=== PATIENT | male | born 1945 | race Caucasian/White ===

== ENCOUNTER 2019-03-01 07:19 | Inpatient (IN) | payer MEDICARE ==
[2019-03-01] VITALS (10 sets, daily range): BP systolic 121–143; BP diastolic 60–73
[~2019-03-01] VITALS: Ht 188 cm; Wt 99.2 kg
[~2019-03-01 07:19] MED LIST: LEVO150T8 PO
[2019-03-01 08:42] LABS: BASOPHILS % (AUTO) 0.7 % (0-1); EOSINOPHILS # (AUTO) 0.1 X10'3 (0-0.9); EOSINOPHILS % (AUTO) 1.8 % (0-6); HEMATOCRIT 39.9 % (42.0-52.0); HEMOGLOBIN 13.9 g/dl (14.0-17.9); LYMPHOCYTES # (AUTO) 2.1 X10'3 (1.1-4.8); LYMPHOCYTES % (AUTO) 34.8 % (21-51); MEAN CORPUSCULAR HEMOGLOBIN 31.9 PG (27.0-31.0); MEAN CORPUSCULAR HGB CONC 34.7 g/dL (33.0-36.5); MEAN PLATELET VOLUME 7.7 FL (7.4-10.4); MONOCYTES # (AUTO) 0.4 X10'3 (0-0.9); MONOCYTES % (AUTO) 6.4 % (2-12); NEUTROPHILS # (AUTO) 3.4 X10'3 (1.8-7.7); NEUTROPHILS % (AUTO) 56.3 % (42-75); PLATELET COUNT 253 X10'3 (140-440); RED BLOOD COUNT 4.34 X10'6 (4.70-6.10); RED CELL DISTRIBUTION WIDTH 13.5 % (11.5-14.5)
[2019-03-01 08:49] LABS: ALANINE AMINOTRANSFERASE 30 U/L (12-78); ALBUMIN 3.8 G/DL (3.4-5.0); ALBUMIN/GLOBULIN RATIO 1.1 (1.1-1.5); ALKALINE PHOSPHATASE 57 IU/L (46-116); ANION GAP 10 (8-16); ASPARTATE AMINO TRANSFERASE 21 U/L (10-37); BILIRUBIN,TOTAL 0.7 MG/DL (0.1-1.0); BLOOD UREA NITROGEN 24 MG/DL (7-18); BUN/CREATININE RATIO 20.5 (5.4-32.0); CALCIUM 9.3 MG/DL (8.5-10.1); CHLORIDE 107 MMOL/L (99-107); CREATININE 1.17 MG/DL (0.60-1.10); GLUCOSE 106 MG/DL (70-104); POTASSIUM 3.8 MMOL/L (3.5-5.1); SODIUM 142 MMOL/L (135-145); TOTAL PROTEIN 7.3 G/DL (6.4-8.2); eGFR 61 ML/MIN
[2019-03-01 09:11] LABS: PARTIAL THROMBOPLASTIN TIME 27 SECONDS (22-32)
[2019-03-01] MEDS ORDERED: nitroGLYCERIN 1gm ointment UD TP ONE (09:25)
[2019-03-01] MEDS ORDERED: morphine 2 MG/ML inj. syringe IV PRN ×2 (09:40)
[2019-03-01] MEDS ORDERED: mag hydrox/Alum hydrox/simeth 30ml oral suspension PO PRN (09:40)
[2019-03-01] MEDS ORDERED: magnesium hydroxide 30ml (MOM) UD suspension PO PRN (09:40)
[2019-03-01] MEDS ORDERED: ondansetron/PF 4mg/2ml inj IV PRN (09:40)
[2019-03-01] MEDS ORDERED: acetaminophen 325mg tablet PO PRN (09:40)
[2019-03-01] MEDS ORDERED: nitroGLYCERIN 0.4mg SUBLingual tab SL PRN (09:40)
[2019-03-01] MEDS: normal saline 1000ml 1,000 ML IV SCH ×2 (09:43→21:52)
--- NOTE | 2019-03-01 10:30 | NUR ---
Received report from MERRY Lobato RN
--- NOTE | 2019-03-01 12:41 | NUR ---
Sent to Dr Burk PAGER ID: [phone] MESSAGE: RE: Nasir Saldaña [id number]. Hour 3 Troponin 0.69 -Meaghan [id number]
[2019-03-01] MEDS ORDERED: heparin 25,000 UNIT/250ml bag 250 ML IV SCH (13:03)
[2019-03-01] MEDS ORDERED: heparin 10,000 units/1 ML INJ IV PRN (13:05)
[2019-03-01] MEDS ORDERED: heparin 10,000 units/1 ML INJ IV ONE (13:05)
[2019-03-01] MEDS ORDERED: nitroGLYCERIN 0.4mg/hour patch TD ONE (13:05)
[2019-03-01] MEDS ORDERED: diphenhydrAMINE 25 MG/10 ML UD oral solution PO ONE (14:00)
[2019-03-01 14:17] LABS: BASOPHILS # (AUTO) 0.1 X10'3 (0-0.2); BASOPHILS % (AUTO) 0.7 % (0-1); EOSINOPHILS # (AUTO) 0.1 X10'3 (0-0.9); EOSINOPHILS % (AUTO) 0.9 % (0-6); HEMATOCRIT 42.1 % (42.0-52.0); HEMOGLOBIN 14.2 g/dl (14.0-17.9); LYMPHOCYTES % (AUTO) 25.9 % (21-51); MEAN CORPUSCULAR HEMOGLOBIN 31.5 PG (27.0-31.0); MEAN CORPUSCULAR HGB CONC 33.8 g/dL (33.0-36.5); MEAN CORPUSCULAR VOLUME 93.2 FL (78-98); MEAN PLATELET VOLUME 7.7 FL (7.4-10.4); MONOCYTES # (AUTO) 0.4 X10'3 (0-0.9); MONOCYTES % (AUTO) 4.8 % (2-12); NEUTROPHILS # (AUTO) 5.3 X10'3 (1.8-7.7); NEUTROPHILS % (AUTO) 67.7 % (42-75); PLATELET COUNT 267 X10'3 (140-440); RED BLOOD COUNT 4.52 X10'6 (4.70-6.10); RED CELL DISTRIBUTION WIDTH 13.5 % (11.5-14.5); WHITE BLOOD COUNT 7.9 X10'3 (4.5-11.0)
[2019-03-01 14:38] LABS: PARTIAL THROMBOPLASTIN TIME 94 SECONDS (22-32)
--- NOTE | 2019-03-01 14:47 | NUR ---
Nasir Saldaña 7307b Critical Value PTT 94 FERNANDO Omer ext [phone]
[2019-03-01] MEDS ORDERED: diphenhydrAMINE 25mg capsule PO ONE (16:00)
[2019-03-01] MEDS ORDERED: LORazepam 1 MG tablet PO ONE (16:00)
--- NOTE | 2019-03-01 16:30 | NUR ---
Patient in room PCU 3017. I have received report from FERNANDO Nathan and had the opportunity to ask questions and assume patient care.
--- NOTE | 2019-03-01 18:00 | NUR ---
Problems reprioritized. Patient report given, questions answered & plan of care reviewed with FERNANDO Husain .
[2019-03-01] MEDS ORDERED: midazolam 2 mg/2 ml injection ONE (19:23)
[2019-03-01] MEDS ORDERED: iohexol 350 MG/ML 50ML vial IV ONE ×2 (19:24→19:52)
[2019-03-01] MEDS ORDERED: fentaNYL/PF 50MCG/1 ML 2ML syringe ONE (19:24)
[2019-03-01] MEDS ORDERED: iohexol 350MG/ML 100ml bottle IV ONE (19:24)
[2019-03-01] MEDS ORDERED: LIDOcaine 1% (10mg/ml)w/preservative injection 20ml MDV ONE (19:24)
[2019-03-01] MEDS ORDERED: heparin, porcine 5000 units/ml vial SQ SCH (20:00)
[2019-03-01] MEDS ORDERED: HYDROcodone/acetaminophen 5mg/325mg tablet PO PRN (22:25)
[2019-03-01] MEDS ORDERED: OXAZEpam 10mg capsule PO PRN ×2 (22:25→22:37)
[2019-03-02] VITALS (7 sets, daily range): BP systolic 101–128; BP diastolic 50–72
--- NOTE | 2019-03-02 01:48 | NUR ---
Unfortunately when the patient arrived back on the unit at 2100 and the vitals machine was programmed, the machine did not start taking the vitals. I went in at about 2145 and reprogrammed the vitals machine correctly and was able to start post op vitals. I will document these.
--- NOTE | 2019-03-02 03:54 | NUR ---
Upon arriving to the unit after receiving report and looking in to the chart, it was noted that the patient did not have a current PTT drawn before starting his Heparin drip. The PTT was drawn at 0800 on 03/01 and was noted to be at 27. The next PTT that was drawn was timed wrong per protocol at 1402. If the PTT labs were drawn correctly, we would have noted them to be at 1330 before the heparin drip was started at 1335 and again at 1930. The ptt that was re drawn at the incorrect time of 1402 and was 94. Per protocol this is a critical result and the drip should have been shut off for 120 min. As I discovered the drip still running outside of protocol, I stopped the drip at 1817. We attempted to get a re draw ptt at 1835, however, we were unable to get blood from the patient. The patient then went to labels molder at approximately 1900. The patient arrived back on the unit at approximately 2100. The patient had orders to lay flat for 6 hrs. The patient was able to ambulate at 0300 to the bathroom. He has no complications, no signs of bleeding or infection and is now resting comfortably.
[2019-03-02 05:49] LABS: BASOPHILS % (AUTO) 0.5 % (0-1); EOSINOPHILS % (AUTO) 0 % (0-6); HEMATOCRIT 36.6 % (42.0-52.0); HEMOGLOBIN 12.6 g/dl (14.0-17.9); LYMPHOCYTES # (AUTO) 1.7 X10'3 (1.1-4.8); LYMPHOCYTES % (AUTO) 16.3 % (21-51); MEAN CORPUSCULAR HEMOGLOBIN 31.9 PG (27.0-31.0); MEAN CORPUSCULAR HGB CONC 34.5 g/dL (33.0-36.5); MEAN CORPUSCULAR VOLUME 92.5 FL (78-98); MEAN PLATELET VOLUME 7.7 FL (7.4-10.4); MONOCYTES # (AUTO) 0.8 X10'3 (0-0.9); MONOCYTES % (AUTO) 7.9 % (2-12); NEUTROPHILS # (AUTO) 8.1 X10'3 (1.8-7.7); NEUTROPHILS % (AUTO) 75.3 % (42-75); PLATELET COUNT 225 X10'3 (140-440); RED BLOOD COUNT 3.95 X10'6 (4.70-6.10); RED CELL DISTRIBUTION WIDTH 13.2 % (11.5-14.5); WHITE BLOOD COUNT 10.7 X10'3 (4.5-11.0)
[2019-03-02 06:09] LABS: ALBUMIN 3.2 G/DL (3.4-5.0); ANION GAP 10 (8-16); BLOOD UREA NITROGEN 14 MG/DL (7-18); BUN/CREATININE RATIO 13.3 (5.4-32.0); CALCIUM 8.6 MG/DL (8.5-10.1); CHLORIDE 106 MMOL/L (99-107); CREATININE 1.05 MG/DL (0.60-1.10); GLUCOSE 124 MG/DL (70-104); POTASSIUM 3.9 MMOL/L (3.5-5.1); SODIUM 139 MMOL/L (135-145); TOTAL CARBON DIOXIDE 23.1 MMOL/L (24-32); eGFR 69 ML/MIN
--- NOTE | 2019-03-02 06:11 | NUR ---
Problems reprioritized. Patient report given, questions answered & plan of care reviewed with FERNANDO Nathan.
--- NOTE | 2019-03-02 06:24 | NUR ---
Patient in room PCU 3017. I have received report from FERNANDO Husain and had the opportunity to ask questions and assume patient care. Pt resting comfortably
[2019-03-02] MEDS: atorvastatin 20mg tablet PO SCH (07:29)
[2019-03-02] MEDS: aspirin 81mg tablet.DR PO SCH (07:29)
[2019-03-02] MEDS: levoTHYROXINE 75mcg tablet PO SCH (07:29)
[2019-03-02] MEDS ORDERED: LEVOTHYROXINE SODIUM 150 MCG PO SCH (08:00)
--- NOTE | 2019-03-02 10:30 | NUR ---
Dr Fernando had consult with patient at bedside. gave report to FERNANDO Amin in [facility]. Pt ready to transfer to [facility]
--- NOTE | 2019-03-02 11:10 | NUR ---
pt transfer to [facility] with all belongings he ambulated to new room.
[2019-03-02] MEDS ORDERED: insulin glargine (Lantus) pen - multi-dose SQ PRN (13:40)
[2019-03-02] MEDS ORDERED: dextrose 50%-water 50ml dispensing syringe IV PRN (13:40)
[2019-03-02] MEDS ORDERED: MESSAGE TO NURSING PO ONE ×3 (13:40→18:00)
[2019-03-02 14:51] LABS: ALBUMIN 3.4 G/DL (3.4-5.0); ANION GAP 8 (8-16); BLOOD UREA NITROGEN 11 MG/DL (7-18); BUN/CREATININE RATIO 9.6 (5.4-32.0); CALCIUM 8.9 MG/DL (8.5-10.1); CHLORIDE 107 MMOL/L (99-107); CREATININE 1.15 MG/DL (0.60-1.10); GLUCOSE 145 MG/DL (70-104); POTASSIUM 3.6 MMOL/L (3.5-5.1); SODIUM 139 MMOL/L (135-145); TOTAL CARBON DIOXIDE 24.4 MMOL/L (24-32); eGFR 62 ML/MIN
[2019-03-02 14:53] LABS: HEMOGLOBIN A1C 5.5 % (4.5-6.2)
[2019-03-02 14:55] LABS: PARTIAL THROMBOPLASTIN TIME 23 SECONDS (22-32)
--- NOTE | 2019-03-02 15:07 | NUR ---
PAGED PT PT IN 308 IS GOING TO SURGERY TOMORROW, NEEDS PT EVAL. THANK YOU, HAIDER PAL [phone]
--- NOTE | 2019-03-02 15:07 | NUR ---
PAGED RT PT IN 308 IS GOING TO SURGERY TOMORROW, NEEDS ABG AND PFT. THANK YOU, HAIDER PAL [phone]
[2019-03-02 15:42] LABS: HEMATOCRIT 36.8 % (42.0-52.0); HEMOGLOBIN 12.9 g/dl (14.0-17.9); MEAN CORPUSCULAR HEMOGLOBIN 31.9 PG (27.0-31.0); MEAN CORPUSCULAR HGB CONC 34.9 g/dL (33.0-36.5); MEAN CORPUSCULAR VOLUME 91.4 FL (78-98); MEAN PLATELET VOLUME 7.8 FL (7.4-10.4); PLATELET COUNT 233 X10'3 (140-440); RED BLOOD COUNT 4.03 X10'6 (4.70-6.10); RED CELL DISTRIBUTION WIDTH 13.6 % (11.5-14.5); WHITE BLOOD COUNT 9.5 X10'3 (4.5-11.0)
--- NOTE | 2019-03-02 16:36 | NUR ---
PAGED VASCULAR "REGARDING 308- ARE YOU COMING BACK UP TO DO HIS VEIN MAPPING AND CAROTIDS? THANK YOU, HAIDER PAL [phone]"
[2019-03-02 17:51] LABS: ABG BASE EXCESS 0.4 mmol/L (-2.0-3.0); ABG HCO3 23.3 mmol/L (22.0-26.0); ABG OXYGEN SATURATION 96.4 % (95-98); ABG PCO2 (T) 32.3 mmHg (35.0-45.0); ABG PH (T) 7.476 (7.350-7.450); ABG PO2 (T) 81.6 mmHg (83-108); ALLEN'S TEST Positive; FCOHb 0.2 % (0.5-1.5); FMetHb 0.3 % (0.3-1.12); FO2Hb 95.9 % (94-100); RESPIRATORY RATE (OBSERVED) 20 b/min; TOTAL HEMOGLOBIN 13.1 G/dl (14.0-17.9)
--- NOTE | 2019-03-02 18:00 | NUR ---
Problems reprioritized. Patient report given, questions answered & plan of care reviewed with CHATA.
--- NOTE | 2019-03-02 18:15 | NUR ---
Patient in room MED 308. I have received report from FERNANDO Amin and had the opportunity to ask questions and assume patient care.
[2019-03-02] MEDS: metoprolol tartrate 12.5mg (1/2 tablet) PO SCH (20:00)
[2019-03-02] MEDS: mupirocin 2% nasal ointment 1gm UD NS SCH (20:54)
[2019-03-03] VITALS (13 sets, daily range): BP systolic 101–133; BP diastolic 58–72
[2019-03-03] MEDS ORDERED: MESSAGE TO NURSING PO ONE ×2 (02:00→08:00)
[2019-03-03] MEDS ORDERED: cefazolin/dext.iso 2gm/50ml 50 ML IV ONE (06:00)
[2019-03-03] MEDS ORDERED: gabapentin 400mg capsule PO ONE (06:00)
[2019-03-03] MEDS ORDERED: insulin regular, human 100 UNIT in normal saline 100ml IV soln 100 ML IV SCH ×2 (06:00)
[2019-03-03] MEDS ORDERED: vancomycin/NS 1 GM ADD-VANTAGE 250 ML IV ONE (06:00)
[2019-03-03] MEDS ORDERED: NUT.TX.IMPAIRED DIGEST FXN (Ensure Clear) 237 ML PO ONE (06:00)
--- NOTE | 2019-03-03 06:15 | NUR ---
Problems reprioritized. Patient report given, questions answered & plan of care reviewed with FERNANDO Culp, Sonam RN and FERNANDO Gerber.
[2019-03-03] MEDS ORDERED: famotidine 20mg tablet PO ONE (07:00)
[2019-03-03] MEDS ORDERED: LORazepam 2 mg/ml vial IV ONE (07:00)
--- NOTE | 2019-03-03 07:00 | NUR ---
Patient in room MED 308. I have received report from Arpita KING and had the opportunity to ask questions and assume patient care.
[2019-03-03 07:01] LABS: BASOPHILS % (AUTO) 0.6 % (0-1); EOSINOPHILS # (AUTO) 0.2 X10'3 (0-0.9); EOSINOPHILS % (AUTO) 2.6 % (0-6); HEMATOCRIT 35.2 % (42.0-52.0); HEMOGLOBIN 12.2 g/dl (14.0-17.9); LYMPHOCYTES # (AUTO) 1.9 X10'3 (1.1-4.8); LYMPHOCYTES % (AUTO) 26.4 % (21-51); MEAN CORPUSCULAR HEMOGLOBIN 31.5 PG (27.0-31.0); MEAN CORPUSCULAR HGB CONC 34.7 g/dL (33.0-36.5); MEAN CORPUSCULAR VOLUME 90.8 FL (78-98); MEAN PLATELET VOLUME 7.5 FL (7.4-10.4); MONOCYTES # (AUTO) 0.6 X10'3 (0-0.9); NEUTROPHILS # (AUTO) 4.4 X10'3 (1.8-7.7); NEUTROPHILS % (AUTO) 61.4 % (42-75); PLATELET COUNT 222 X10'3 (140-440); RED BLOOD COUNT 3.88 X10'6 (4.70-6.10); RED CELL DISTRIBUTION WIDTH 13.5 % (11.5-14.5); WHITE BLOOD COUNT 7.1 X10'3 (4.5-11.0)
[2019-03-03 07:23] LABS: ALBUMIN 3.3 G/DL (3.4-5.0); ANION GAP 9 (8-16); BLOOD UREA NITROGEN 12 MG/DL (7-18); BUN/CREATININE RATIO 11.3 (5.4-32.0); CALCIUM 8.9 MG/DL (8.5-10.1); CHLORIDE 108 MMOL/L (99-107); CREATININE 1.06 MG/DL (0.60-1.10); GLUCOSE 109 MG/DL (70-104); POTASSIUM 3.8 MMOL/L (3.5-5.1); SODIUM 142 MMOL/L (135-145); TOTAL CARBON DIOXIDE 25.2 MMOL/L (24-32); eGFR 68 ML/MIN
[2019-03-03] MEDS: metoprolol tartrate 12.5mg (1/2 tablet) PO SCH (08:20)
[2019-03-03] MEDS: atorvastatin 20mg tablet PO SCH (08:21)
[2019-03-03] MEDS: aspirin 81mg tablet.DR PO SCH (08:21)
[2019-03-03] MEDS: levoTHYROXINE 75mcg tablet PO SCH (08:29)
[2019-03-03] MEDS: mupirocin 2% nasal ointment 1gm UD NS SCH ×2 (08:31→20:01)
[2019-03-03] MEDS ORDERED: calcium chloride 100 MG/1 ML inj IV ONE (13:00)
[2019-03-03] MEDS ORDERED: potassium Cl 2 mEq/ml inj IV ONE (13:00)
[2019-03-03] MEDS ORDERED: heparin 1,000 units/ml 10ml inj ONE (13:00)
[2019-03-03] MEDS ORDERED: heparin 10,000 units/1 ML INJ ONE (13:00)
[2019-03-03] MEDS ORDERED: aminocaproic acid 250 MG/1 ML inj. ONE (13:00)
[2019-03-03] MEDS ORDERED: albumin (human) 25% 100 ML IV solution IV ONE (13:00)
[2019-03-03] MEDS ORDERED: sodium bicarbonate (8.4%) 1 mEq/ml syringe ONE (13:00)
[2019-03-03] MEDS ORDERED: methylPREDNISolone sod. succ. 500mg inj ONE (13:00)
[2019-03-03] MEDS ORDERED: MAGNESIUM SULFATE 4 MEQ/ML (5gm/10ml) injection ONE (13:00)
[2019-03-03] MEDS ORDERED: phenylephrine 10mg/ml inj. ONE (13:00)
[2019-03-03] MEDS ORDERED: LIDOcaine 2% (20 mg/ml) 5ml cardiac syringe ONE (13:00)
[2019-03-03] MEDS ORDERED: SUFENTANIL CITRATE 50 MCG/ML 2ml ampule IV ONE (13:06)
[2019-03-03] MEDS ORDERED: MIDAZolam 1mg/ml 10ml vial ONE (13:06)
[2019-03-03] MEDS ORDERED: propofol inj 20 ML IV ONE (13:09)
[2019-03-03] MEDS ORDERED: rocuronium 10mg/ml inj IV ONE ×3 (13:10→16:33)
--- NOTE | 2019-03-03 13:10 | NUR ---
Patient went to [facility] OR
[2019-03-03] MEDS ORDERED: protamine sulf. 10mg/ml inj. IV ONE (13:12)
[2019-03-03] MEDS ORDERED: niCARDipine in NS 40mg/200ml (0.2mg/ml) IVPB IV ONE (13:12)
[2019-03-03] MEDS ORDERED: nitroGLYCERIN in D5W 50mg/250ml (Tridil) infusion IV ONE (13:12)
[2019-03-03] MEDS ORDERED: sevoflurane 250ml liquid IH ONE (13:12)
[2019-03-03] MEDS ORDERED: acetaminophen 1000 MG/100ml vial IV ONE (13:12)
[2019-03-03 14:00] LABS: ABG HCO3 22.4 mmol/L (22.0-26.0); ABG OXYGEN SATURATION 99.4 % (95-98); ABG PCO2 32.9 mmHg (35.0-45.0); ABG PO2 460.7 mmHg (60.0-100.0); CL (ABG) 105 mmol/L (99-107); FCOHb 0.6 % (0.5-1.5); FMetHb 0.2 % (0.3-1.12); FO2Hb 98.6 % (94-100); GLUCOSE (ABG) 98 mg/dl (70-104); IONIZED CA (ABG) 1.16 mmol/L (1.03-1.32); K (ABG) 3.9 mmol/L (3.3-5.1); NA (ABG) 139 mmol/L (135-145); TOTAL HEMOGLOBIN 12.3 G/dl (14.0-17.9)
[2019-03-03 14:25] LABS: ABG BASE EXCESS -1.6 mmol/L (-2.0-3.0); ABG HCO3 23.1 mmol/L (22.0-26.0); ABG OXYGEN SATURATION 84.9 % (95-98); ABG PCO2 38.9 mmHg (35.0-45.0); ABG PH 7.392 (7.350-7.450); ABG PO2 50.2 mmHg (60.0-100.0); CL (ABG) 103 mmol/L (99-107); FMetHb 0.1 % (0.3-1.12); GLUCOSE (ABG) 122 mg/dl (70-104); IONIZED CA (ABG) 1.14 mmol/L (1.03-1.32); K (ABG) 3.7 mmol/L (3.3-5.1); NA (ABG) 137 mmol/L (135-145); TOTAL HEMOGLOBIN 11.7 G/dl (14.0-17.9)
[2019-03-03 14:46] LABS: ABG BASE EXCESS VENOUS -0.7 mmol/L; ABG HCO3 VENOUS 24.1 mmol/L; ABG PCO2 VENOUS 40.7 mmHg; ABG PO2 VENOUS 51.1 mmHg; CL (ABG) 102 mmol/L (99-107); FCOHb VENOUS 1.1 %; FHHb VENOUS 15.4 %; FMetHb VENOUS 0.4 %; FO2Hb VENOUS 83.1 %; GLUCOSE (ABG) 111 mg/dl (70-104); IONIZED CA (ABG) 1.05 mmol/L (1.03-1.32); K (ABG) 4.4 mmol/L (3.3-5.1); NA (ABG) 136 mmol/L (135-145); TOTAL HEMOGLOBIN 9.7 G/dl (14.0-17.9)
[2019-03-03 14:46] LABS: ABG BASE EXCESS 0.3 mmol/L (-2.0-3.0); ABG HCO3 25.1 mmol/L (22.0-26.0); ABG OXYGEN SATURATION 99.1 % (95-98); ABG PH 7.404 (7.350-7.450); CL (ABG) 103 mmol/L (99-107); FCOHb 0.3 % (0.5-1.5); FMetHb 0.1 % (0.3-1.12); FO2Hb 98.7 % (94-100); GLUCOSE (ABG) 112 mg/dl (70-104); IONIZED CA (ABG) 1.06 mmol/L (1.03-1.32); K (ABG) 4.6 mmol/L (3.3-5.1); NA (ABG) 136 mmol/L (135-145); TOTAL HEMOGLOBIN 9.6 G/dl (14.0-17.9)
[2019-03-03 15:10] LABS: ABG BASE EXCESS -1.7 mmol/L (-2.0-3.0); ABG HCO3 24.3 mmol/L (22.0-26.0); ABG OXYGEN SATURATION 99.3 % (95-98); ABG PH 7.332 (7.350-7.450); ABG PO2 408.3 mmHg (60.0-100.0); CL (ABG) 103 mmol/L (99-107); FCOHb 0.4 % (0.5-1.5); FMetHb 0.2 % (0.3-1.12); FO2Hb 98.7 % (94-100); GLUCOSE (ABG) 161 mg/dl (70-104); IONIZED CA (ABG) 1.11 mmol/L (1.03-1.32); K (ABG) 4.1 mmol/L (3.3-5.1); NA (ABG) 137 mmol/L (135-145); TOTAL HEMOGLOBIN 9.7 G/dl (14.0-17.9)
[2019-03-03 15:56] LABS: ABG BASE EXCESS VENOUS -0.8 mmol/L; ABG HCO3 VENOUS 23.6 mmol/L; ABG PCO2 VENOUS 37.9 mmHg; ABG PO2 VENOUS 65.3 mmHg; CL (ABG) 103 mmol/L (99-107); FCOHb VENOUS 0.4 %; FHHb VENOUS 8.4 %; FMetHb VENOUS 0.5 %; FO2Hb VENOUS 90.7 %; GLUCOSE (ABG) 161 mg/dl (70-104); IONIZED CA (ABG) 1.23 mmol/L (1.03-1.32); K (ABG) 4.3 mmol/L (3.3-5.1); NA (ABG) 137 mmol/L (135-145); TOTAL HEMOGLOBIN 10.3 G/dl (14.0-17.9)
[2019-03-03] MEDS ORDERED: DOPamine 400mg/D5W 250ml 250 ML IV PRN (16:21)
[2019-03-03] MEDS ORDERED: niCARDipine-NS 40mg/200ml IVPB 200 ML IV PRN (16:21)
[2019-03-03] MEDS ORDERED: nitroGLYCERIN-Tridil 50MG/D5W 250 ML IV PRN (16:21)
[2019-03-03] MEDS ORDERED: sodium chloride 0.45% 1,000 ML IV SCH (16:21)
[2019-03-03] MEDS ORDERED: insulin regular, human inj. 100 UNITS in normal saline 100ml IV soln 100 ML IV SCH ×2 (16:25)
[2019-03-03] MEDS ORDERED: albumin (Human) 5% 250ml 250 ML IV PRN (16:25)
[2019-03-03] MEDS ORDERED: sodium phosphate inj. 15 MMOL in dextrose 5%-water 150 ML IV PRN (16:25)
[2019-03-03] MEDS ORDERED: Neutra Phos packet PO PRN (16:25)
[2019-03-03] MEDS ORDERED: acetaminophen 325mg tablet PO PRN (16:25)
[2019-03-03] MEDS ORDERED: normal saline 250ml IV soln 250 ML IV PRN (16:25)
[2019-03-03] MEDS ORDERED: morphine 4 MG/ML inj SYRINge IV PRN ×2 (16:25)
[2019-03-03] MEDS ORDERED: sodium phosphate inj. 30 MMOL in dextrose 5%-water 250 ML IV PRN (16:25)
[2019-03-03] MEDS ORDERED: magnesium hydroxide 30ml (MOM) UD suspension PO PRN (16:25)
[2019-03-03] MEDS ORDERED: dextrose 50%-water 50ml dispensing syringe IV PRN (16:25)
[2019-03-03] MEDS ORDERED: magnesium 2GM in 50ml NS 50 ML IV PRN (16:25)
[2019-03-03] MEDS ORDERED: ondansetron/PF 4mg/2ml inj IV PRN (16:25)
[2019-03-03] MEDS ORDERED: metoclopramide 5 mg/ml inj IV PRN (16:25)
[2019-03-03] MEDS ORDERED: HYDROcodone/acetaminophen 10/325mg tab PO PRN ×2 (16:25)
[2019-03-03] MEDS ORDERED: pantoprazole 40 MG vial IV ONE (16:25)
[2019-03-03] MEDS ORDERED: potassium Cl 20 mEq SR tablet PO PRN (16:25)
[2019-03-03] MEDS ORDERED: magnesium 4gm in 100ml NS 100 ML IV PRN (16:25)
--- NOTE | 2019-03-03 16:40 | NUR ---
Received to room 2010, accompanied by Keisha Fernando and Armando and surgical crew. Placed on ventilator, to cardiac cath lab manager, arterial line and PA line pressure monitored. Chest tubes to suction at 20 cm. Kohli cath to gravity drainage. Dressings are dry and intact. See assessment record. All vasoactive drugs are infusing via central line.
[2019-03-03 16:46] LABS: ABG BASE EXCESS -0.2 mmol/L (-2.0-3.0); ABG HCO3 24.5 mmol/L (22.0-26.0); ABG OXYGEN SATURATION 96.8 % (95-98); ABG PCO2 (T) 40.2 mmHg (35.0-45.0); ABG PH (T) 7.403 (7.350-7.450); ABG PO2 (T) 91.8 mmHg (83-108); FCOHb 0.2 % (0.5-1.5); FMetHb 0.2 % (0.3-1.12); FO2Hb 96.4 % (94-100); MINUTE VOLUME 8 L/min; PEEP 5 cm H2O; RESPIRATORY RATE 12 b/min; RESPIRATORY RATE (OBSERVED) 12 b/min; TIDAL VOLUME 600 mL; TOTAL HEMOGLOBIN 13.3 G/dl (14.0-17.9)
[2019-03-03 17:05] LABS: BASOPHILS # (AUTO) 0.1 X10'3 (0-0.2); BASOPHILS % (AUTO) 0.4 % (0-1); EOSINOPHILS # (AUTO) 0.2 X10'3 (0-0.9); EOSINOPHILS % (AUTO) 1.3 % (0-6); HEMATOCRIT 37.5 % (42.0-52.0); LYMPHOCYTES # (AUTO) 1.7 X10'3 (1.1-4.8); LYMPHOCYTES % (AUTO) 11.5 % (21-51); MEAN CORPUSCULAR HEMOGLOBIN 31.6 PG (27.0-31.0); MEAN CORPUSCULAR HGB CONC 34.6 g/dL (33.0-36.5); MEAN CORPUSCULAR VOLUME 91.5 FL (78-98); MEAN PLATELET VOLUME 7.7 FL (7.4-10.4); MONOCYTES # (AUTO) 0.6 X10'3 (0-0.9); MONOCYTES % (AUTO) 4.4 % (2-12); NEUTROPHILS # (AUTO) 11.9 X10'3 (1.8-7.7); NEUTROPHILS % (AUTO) 82.4 % (42-75); PLATELET COUNT 170 X10'3 (140-440); RED CELL DISTRIBUTION WIDTH 13.6 % (11.5-14.5); WHITE BLOOD COUNT 14.4 X10'3 (4.5-11.0)
[2019-03-03 17:25] LABS: ALANINE AMINOTRANSFERASE 23 U/L (12-78); ALBUMIN 3.2 G/DL (3.4-5.0); ALBUMIN/GLOBULIN RATIO 1.1 (1.1-1.5); ALKALINE PHOSPHATASE 44 IU/L (46-116); ANION GAP 10 (8-16); ASPARTATE AMINO TRANSFERASE 42 U/L (10-37); BLOOD UREA NITROGEN 12 MG/DL (7-18); BUN/CREATININE RATIO 10.8 (5.4-32.0); CALCIUM 8.9 MG/DL (8.5-10.1); CHLORIDE 107 MMOL/L (99-107); CREATININE 1.11 MG/DL (0.60-1.10); GLUCOSE 173 MG/DL (70-104); MAGNESIUM 2.7 MG/DL (1.5-2.4); PHOSPHORUS 2.4 MG/DL (2.3-4.5); POTASSIUM 3.9 MMOL/L (3.5-5.1); SODIUM 142 MMOL/L (135-145); TOTAL CARBON DIOXIDE 25.3 MMOL/L (24-32); eGFR 65 ML/MIN
[2019-03-03 17:42] LABS: PARTIAL THROMBOPLASTIN TIME 24 SECONDS (22-32)
[2019-03-03] MEDS ORDERED: insulin Lispro (HumaLOG) vial - multi-dose SQ SCH (18:00)
--- NOTE | 2019-03-03 18:00 | NUR ---
responding to voice, squeezing hands to command weakly, eyes open but drowsy.
--- NOTE | 2019-03-03 18:30 | NUR ---
Problems reprioritized. Patient report given, questions answered & plan of care reviewed with Craig Lew RN.
[2019-03-03] MEDS: potassium Cl 20mEq/100mL bag 100 ML IV PRN ×3 (18:48→23:53)
[2019-03-03] MEDS: docusate sod 100mg capsule PO SCH (20:00)
[2019-03-03] MEDS: vancomycin/NS 1 GM ADD-VANTAGE 250 ML IV SCH (20:01)
[2019-03-03 21:11] LABS: ABG BASE EXCESS -0.8 mmol/L (-2.0-3.0); ABG HCO3 23.8 mmol/L (22.0-26.0); ABG OXYGEN SATURATION 95.1 % (95-98); ABG PCO2 (T) 39.2 mmHg (35.0-45.0); ABG PH (T) 7.402 (7.350-7.450); ABG PO2 (T) 79.9 mmHg (83-108); FCOHb 0.2 % (0.5-1.5); FMetHb 0.1 % (0.3-1.12); FO2Hb 94.8 % (94-100); MINUTE VOLUME 8 L/min; PATIENT TEMPERATURE 37.1; PEEP 5 cm H2O; RESPIRATORY RATE (OBSERVED) 10 b/min; TOTAL HEMOGLOBIN 12.9 G/dl (14.0-17.9)
[2019-03-03] MEDS: gabapentin 300mg capsule PO SCH (22:19)
[2019-03-03 22:20] LABS: BASOPHILS # (AUTO) 0.1 X10'3 (0-0.2); BASOPHILS % (AUTO) 0.4 % (0-1); EOSINOPHILS % (AUTO) 0.1 % (0-6); HEMATOCRIT 36.6 % (42.0-52.0); HEMOGLOBIN 12.4 g/dl (14.0-17.9); LYMPHOCYTES # (AUTO) 0.5 X10'3 (1.1-4.8); LYMPHOCYTES % (AUTO) 3.9 % (21-51); MEAN CORPUSCULAR HEMOGLOBIN 31.6 PG (27.0-31.0); MEAN CORPUSCULAR HGB CONC 33.9 g/dL (33.0-36.5); MEAN CORPUSCULAR VOLUME 93.2 FL (78-98); MEAN PLATELET VOLUME 7.7 FL (7.4-10.4); MONOCYTES # (AUTO) 0.4 X10'3 (0-0.9); MONOCYTES % (AUTO) 3.2 % (2-12); NEUTROPHILS # (AUTO) 12.4 X10'3 (1.8-7.7); NEUTROPHILS % (AUTO) 92.4 % (42-75); PLATELET COUNT 173 X10'3 (140-440); RED BLOOD COUNT 3.93 X10'6 (4.70-6.10); RED CELL DISTRIBUTION WIDTH 13.5 % (11.5-14.5); WHITE BLOOD COUNT 13.4 X10'3 (4.5-11.0)
[2019-03-03 22:33] LABS: ALBUMIN 3.1 G/DL (3.4-5.0); ANION GAP 8 (8-16); BLOOD UREA NITROGEN 13 MG/DL (7-18); BUN/CREATININE RATIO 10.4 (5.4-32.0); CALCIUM 8.4 MG/DL (8.5-10.1); CHLORIDE 111 MMOL/L (99-107); CREATININE 1.25 MG/DL (0.60-1.10); GLUCOSE 136 MG/DL (70-104); MAGNESIUM 2.2 MG/DL (1.5-2.4); PHOSPHORUS 2.7 MG/DL (2.3-4.5); SODIUM 144 MMOL/L (135-145); TOTAL CARBON DIOXIDE 24.7 MMOL/L (24-32); eGFR 57 ML/MIN
[2019-03-03] MEDS: ceFAZolin 1GM/D5W- ADD-VANTAGE 50 ML IV SCH (23:53)
[2019-03-04] VITALS (24 sets, daily range): BP systolic 101–151; BP diastolic 55–91
[2019-03-04 03:19] LABS: BASOPHILS % (AUTO) 0.1 % (0-1); EOSINOPHILS % (AUTO) 0 % (0-6); HEMATOCRIT 34.1 % (42.0-52.0); HEMOGLOBIN 11.6 g/dl (14.0-17.9); LYMPHOCYTES # (AUTO) 0.4 X10'3 (1.1-4.8); LYMPHOCYTES % (AUTO) 3.4 % (21-51); MEAN CORPUSCULAR HEMOGLOBIN 31.3 PG (27.0-31.0); MEAN CORPUSCULAR HGB CONC 33.9 g/dL (33.0-36.5); MEAN CORPUSCULAR VOLUME 92.3 FL (78-98); MEAN PLATELET VOLUME 7.7 FL (7.4-10.4); MONOCYTES # (AUTO) 0.6 X10'3 (0-0.9); MONOCYTES % (AUTO) 4.9 % (2-12); NEUTROPHILS % (AUTO) 91.6 % (42-75); PLATELET COUNT 170 X10'3 (140-440); RED BLOOD COUNT 3.69 X10'6 (4.70-6.10); RED CELL DISTRIBUTION WIDTH 13.8 % (11.5-14.5); WHITE BLOOD COUNT 13.1 X10'3 (4.5-11.0)
[2019-03-04 03:35] LABS: ALANINE AMINOTRANSFERASE 27 U/L (12-78); ALKALINE PHOSPHATASE 40 IU/L (46-116); ANION GAP 6 (8-16); ASPARTATE AMINO TRANSFERASE 47 U/L (10-37); BILIRUBIN,TOTAL 0.4 MG/DL (0.1-1.0); BLOOD UREA NITROGEN 12 MG/DL (7-18); CALCIUM 8.1 MG/DL (8.5-10.1); CHLORIDE 110 MMOL/L (99-107); GLUCOSE 147 MG/DL (70-104); PHOSPHORUS 3.2 MG/DL (2.3-4.5); POTASSIUM 4.8 MMOL/L (3.5-5.1); SODIUM 141 MMOL/L (135-145); TOTAL CARBON DIOXIDE 24.6 MMOL/L (24-32); TOTAL PROTEIN 5.9 G/DL (6.4-8.2); eGFR 59 ML/MIN
[2019-03-04 04:10] LABS: PARTIAL THROMBOPLASTIN TIME 27 SECONDS (22-32)
--- NOTE | 2019-03-04 06:30 | NUR ---
Patient in room CICU 2010. I have received report from FERNANDO Bartlett and had the opportunity to ask questions and assume patient care.
--- NOTE | 2019-03-04 06:32 | NUR ---
UP IN SIDE OF THE BED , TOLERATED WELL , REPORT TO KHOA KING
[2019-03-04] MEDS: ceFAZolin 1GM/D5W- ADD-VANTAGE 50 ML IV SCH ×2 (08:09→17:03)
[2019-03-04] MEDS: gabapentin 300mg capsule PO SCH ×3 (08:17→20:08)
[2019-03-04] MEDS: vancomycin/NS 1 GM ADD-VANTAGE 250 ML IV SCH ×2 (08:17→20:08)
[2019-03-04] MEDS: mupirocin 2% nasal ointment 1gm UD NS SCH ×2 (08:17→20:08)
[2019-03-04] MEDS: atorvastatin 10mg tablet PO SCH (08:18)
[2019-03-04] MEDS: docusate sod 100mg capsule PO SCH ×2 (08:18→20:08)
[2019-03-04] MEDS: levoTHYROXINE 75mcg tablet PO SCH (08:18)
[2019-03-04] MEDS: metoprolol tartrate 12.5mg (1/2 tablet) PO SCH ×2 (08:18→20:08)
[2019-03-04] MEDS: aspirin 325mg tablet, delayed-release (Ecotrin) PO SCH (08:18)
[2019-03-04 08:40] LABS: ACTIVATED CLOTTING TIME 72 SEC (101-148)
[2019-03-04 08:40] LABS: ACT @ 1.70 U 280 SEC (193-297); ACT @ 2.84 U 402 SEC (260-420); BASELINE ACT 133 SEC (101-148); PATIENT WEIGHT 97.0k KG
--- NOTE | 2019-03-04 10:30 | NUR ---
ART line and PA line removed under aseptic technique, pressure held for 10min, sterile dressing applied to IJ, pt tolerated procedure well with no discomfort.
[2019-03-04] MEDS ORDERED: dextrose ORAL solution 15 GM/59 ML bottle PO PRN ×2 (13:10)
[2019-03-04] MEDS ORDERED: dextrose 50%-water 50ml dispensing syringe IV PRN ×2 (13:10)
[2019-03-04] MEDS ORDERED: glucagon, human recombinant 1mg kit SUBCUT PRN (13:10)
[2019-03-04] MEDS: insulin Lispro (HumaLOG) vial - multi-dose SQ SCH ×2 (13:46→19:22)
--- NOTE | 2019-03-04 17:30 | NUR ---
Ambulated pt around unit with one person assist, pt tolerated well with no SOB or chest pain. encouraged IS and flutter use.
--- NOTE | 2019-03-04 18:26 | NUR ---
Problems reprioritized. Patient report given, questions answered & plan of care reviewed with Anushka.
--- NOTE | 2019-03-04 18:30 | NUR ---
I have received report and assumed care of pt. Pt sitting up in chair visiting with family no distress noted, pt is alert and oriented, pt denies needs at this time
--- NOTE | 2019-03-04 19:05 | NUR ---
pt eating dinner without difficulties.
--- NOTE | 2019-03-04 20:43 | NUR ---
hs cares complete pt tolerated well
[2019-03-04] MEDS ORDERED: insulin glargine (Lantus) pen - multi-dose SQ SCH (21:00)
[2019-03-05] VITALS (20 sets, daily range): BP systolic 100–150; BP diastolic 62–80
--- NOTE | 2019-03-05 00:05 | NUR ---
no changes in status noted, pt denies needs at this time
[2019-03-05] MEDS: ceFAZolin 1GM/D5W- ADD-VANTAGE 50 ML IV SCH ×2 (00:23→07:29)
[2019-03-05 03:03] LABS: BASOPHILS % (AUTO) 0.2 % (0-1); EOSINOPHILS % (AUTO) 0 % (0-6); HEMATOCRIT 33.4 % (42.0-52.0); HEMOGLOBIN 11.3 g/dl (14.0-17.9); LYMPHOCYTES # (AUTO) 1.2 X10'3 (1.1-4.8); LYMPHOCYTES % (AUTO) 7.7 % (21-51); MEAN CORPUSCULAR HEMOGLOBIN 31.7 PG (27.0-31.0); MEAN CORPUSCULAR HGB CONC 33.9 g/dL (33.0-36.5); MEAN CORPUSCULAR VOLUME 93.6 FL (78-98); MEAN PLATELET VOLUME 8.1 FL (7.4-10.4); MONOCYTES % (AUTO) 6.5 % (2-12); NEUTROPHILS # (AUTO) 13.6 X10'3 (1.8-7.7); NEUTROPHILS % (AUTO) 85.6 % (42-75); PLATELET COUNT 175 X10'3 (140-440); RED BLOOD COUNT 3.57 X10'6 (4.70-6.10); RED CELL DISTRIBUTION WIDTH 13.8 % (11.5-14.5); WHITE BLOOD COUNT 15.8 X10'3 (4.5-11.0)
[2019-03-05 03:13] LABS: ALBUMIN 2.8 G/DL (3.4-5.0); ANION GAP 6 (8-16); BLOOD UREA NITROGEN 18 MG/DL (7-18); BUN/CREATININE RATIO 15.4 (5.4-32.0); CALCIUM 8.3 MG/DL (8.5-10.1); CHLORIDE 107 MMOL/L (99-107); CREATININE 1.17 MG/DL (0.60-1.10); GLUCOSE 171 MG/DL (70-104); MAGNESIUM 2.1 MG/DL (1.5-2.4); PHOSPHORUS 2.6 MG/DL (2.3-4.5); POTASSIUM 4.2 MMOL/L (3.5-5.1); SODIUM 140 MMOL/L (135-145); TOTAL CARBON DIOXIDE 26.6 MMOL/L (24-32); eGFR 61 ML/MIN
--- NOTE | 2019-03-05 06:30 | NUR ---
Patient in room CICU 2010. I have received report from FERNANDO Reveles and had the opportunity to ask questions and assume patient care.
[2019-03-05] MEDS: levoTHYROXINE 75mcg tablet PO SCH (07:26)
[2019-03-05] MEDS: mupirocin 2% nasal ointment 1gm UD NS SCH (07:29)
[2019-03-05] MEDS ORDERED: POTASSIUM BICARB 20meq eff tab 20 MEQ TABLET.EFF PO PRN (08:15)
[2019-03-05] MEDS: metoprolol tartrate 12.5mg (1/2 tablet) PO SCH (08:29)
[2019-03-05] MEDS: atorvastatin 10mg tablet PO SCH (08:30)
[2019-03-05] MEDS: docusate sod 100mg capsule PO SCH ×2 (08:30→20:00)
[2019-03-05] MEDS: pantoprazole 40mg Tablet.DR PO SCH (08:30)
[2019-03-05] MEDS: gabapentin 300mg capsule PO SCH ×2 (08:30→14:35)
[2019-03-05] MEDS: aspirin 325mg tablet, delayed-release (Ecotrin) PO SCH (08:31)
[2019-03-05] MEDS ORDERED: potassium CL 10mEq/100ml bag 100 ML IV PRN ×2 (08:35)
[2019-03-05] MEDS ORDERED: magnesium 2GM in 50ml NS 50 ML IV PRN (08:35)
[2019-03-05] MEDS ORDERED: magnesium 4gm in 100ml NS 100 ML IV PRN (08:35)
[2019-03-05] MEDS ORDERED: potassium Cl 20 mEq SR tablet PO PRN ×2 (08:35)
[2019-03-05] MEDS ORDERED: magnesium Cl slow-release 64mg tablet PO PRN (08:35)
--- NOTE | 2019-03-05 11:57 | NUR ---
@1130, urinary catheter DC, small valentin red drop of blood out of urethra. Catheter removal normal, was easy to remove, all fluid removed from balloon before cathether DC.
--- NOTE | 2019-03-05 12:00 | NUR ---
CVL to right IJ removed with aseptic technique, pressure held for 10min, pressure dressing applied, pt tolerated procedure well.
[2019-03-05] MEDS ORDERED: gabapentin 300mg capsule PO ONE (14:25)
--- NOTE | 2019-03-05 15:15 | NUR ---
Problems reprioritized. Patient report given, questions answered & plan of care reviewed with FERNANDO Hilliard.
--- NOTE | 2019-03-05 15:16 | NUR ---
I have received report from Shahrzad KING and had the opportunity to ask questions and assume patient care. The patient has not yet arrived from the ICU.
--- NOTE | 2019-03-05 15:30 | NUR ---
@1530 pt brought to room by wheelchair attached to portable monitor by 2x RNs. No significant change in vitals during transport. Pt calm, alert, appropriate. Pt stable and xfr into new bed with no distress. Pt aaox4, Receiving RN in room
--- NOTE | 2019-03-05 15:40 | NUR ---
Patient arrived to room 308 in stable condition. Alert and oriented times four. Oriented to room and call light. No complaints at this time.
--- NOTE | 2019-03-05 18:00 | NUR ---
Patient in room MED 308. I have received report from FERNANDO Hilliard, and had the opportunity to ask questions and assume patient care.
--- NOTE | 2019-03-05 18:24 | NUR ---
Problems reprioritized. Patient report given, questions answered & plan of care reviewed with
[2019-03-05] MEDS: potassium Cl 20 mEq SR tablet PO SCH (20:00)
[2019-03-05] MEDS: magnesium Cl slow-release 64mg tablet PO SCH (20:00)
[2019-03-05] MEDS: lisinopril 2.5mg tablet PO SCH (20:39)
[2019-03-05] MEDS: metoprolol tartrate 25mg tablet PO SCH (20:40)
[2019-03-06] VITALS: BP 114/68
[2019-03-06 02:00] VITALS: BP 113/67
[2019-03-06 05:17] LABS: BASOPHILS % (AUTO) 0.2 % (0-1); EOSINOPHILS # (AUTO) 0.1 X10'3 (0-0.9); EOSINOPHILS % (AUTO) 0.4 % (0-6); HEMATOCRIT 33.1 % (42.0-52.0); HEMOGLOBIN 11.1 g/dl (14.0-17.9); LYMPHOCYTES % (AUTO) 17.3 % (21-51); MEAN CORPUSCULAR HEMOGLOBIN 31.3 PG (27.0-31.0); MEAN CORPUSCULAR HGB CONC 33.5 g/dL (33.0-36.5); MEAN CORPUSCULAR VOLUME 93.3 FL (78-98); MEAN PLATELET VOLUME 8.3 FL (7.4-10.4); MONOCYTES # (AUTO) 0.9 X10'3 (0-0.9); MONOCYTES % (AUTO) 7.6 % (2-12); NEUTROPHILS # (AUTO) 8.4 X10'3 (1.8-7.7); NEUTROPHILS % (AUTO) 74.5 % (42-75); PLATELET COUNT 165 X10'3 (140-440); RED BLOOD COUNT 3.55 X10'6 (4.70-6.10); RED CELL DISTRIBUTION WIDTH 13.4 % (11.5-14.5); WHITE BLOOD COUNT 11.3 X10'3 (4.5-11.0)
[2019-03-06 05:53] LABS: ALBUMIN 2.8 G/DL (3.4-5.0); ANION GAP 6 (8-16); BLOOD UREA NITROGEN 18 MG/DL (7-18); BUN/CREATININE RATIO 17.1 (5.4-32.0); CALCIUM 8.7 MG/DL (8.5-10.1); CHLORIDE 109 MMOL/L (99-107); CREATININE 1.05 MG/DL (0.60-1.10); GLUCOSE 122 MG/DL (70-104); MAGNESIUM 2.1 MG/DL (1.5-2.4); SODIUM 143 MMOL/L (135-145); TOTAL CARBON DIOXIDE 27.8 MMOL/L (24-32); eGFR 69 ML/MIN
[2019-03-06 06:00] VITALS: BP 109/65
--- NOTE | 2019-03-06 06:00 | NUR ---
Problems reprioritized. Patient report given, questions answered & plan of care reviewed with FERNANDO Hilliard.
--- NOTE | 2019-03-06 06:51 | NUR ---
Patient in room MED 308. I have received report from Lashaun KING and had the opportunity to ask questions and assume patient care.
[2019-03-06] MEDS: metoprolol tartrate 25mg tablet PO SCH ×2 (07:11→20:19)
[2019-03-06] MEDS: atorvastatin 10mg tablet PO SCH (07:11)
[2019-03-06] MEDS: aspirin 325mg tablet, delayed-release (Ecotrin) PO SCH (07:11)
[2019-03-06] MEDS: docusate sod 100mg capsule PO SCH ×2 (07:11→20:00)
[2019-03-06] MEDS: pantoprazole 40mg Tablet.DR PO SCH (07:11)
[2019-03-06] MEDS: levoTHYROXINE 75mcg tablet PO SCH (07:11)
[2019-03-06] MEDS: potassium Cl 20 mEq SR tablet PO SCH ×2 (07:13→20:20)
[2019-03-06] MEDS: magnesium Cl slow-release 64mg tablet PO SCH ×2 (07:14→20:19)
[2019-03-06] MEDS: K and/or MAG REPLACEMENT MC SCH (07:14)
[2019-03-06 11:00] VITALS: BP 106/63
--- NOTE | 2019-03-06 15:48 | NUR ---
Problems reprioritized. Patient report given, questions answered & plan of care reviewed with Yasmine RN.
--- NOTE | 2019-03-06 15:55 | NUR ---
Initial: Pt admit with NSTEMI now s/p AVR. Pt seen at bedside provided with written and verbal nutrition and wound healing after cardiac surgery education with RD contact information. Pt currently on no concentrated sweets diet with documented 100% PO intake meeting nutrient needs. Pt denies additional protein at this time. Pt reports a fluctuating appetite and denies any food allergies, difficulty chewing/swallowing, or constipation/diarrhea. [facility] 03/05. Will continue to follow. Recommendations: 1) Continue with no concentrated sweets diet 2) Routine bowel care 3) Wt per rx Addendum: 03/06/19 at [address] Amended: Links added.
[2019-03-06 18:00] VITALS: BP 117/74
--- NOTE | 2019-03-06 18:24 | NUR ---
Problems reprioritized. Patient report given, questions answered & plan of care reviewed with Caro KING.
--- NOTE | 2019-03-06 18:25 | NUR ---
Patient in room MED 308. I have received report from FERNANDO Underwood and had the opportunity to ask questions and assume patient care. Patient is A&O x3,VALENC[place] and is appropriate, dinner just came and patient is up to chair. I will continue to monitor.
[2019-03-06] MEDS: lisinopril 2.5mg tablet PO SCH (20:19)
[2019-03-06 22:00] VITALS: BP 114/65
[2019-03-07 02:00] VITALS: BP 102/60
[2019-03-07 06:00] VITALS: BP 104/64
[2019-03-07 06:08] LABS: ALBUMIN 2.8 G/DL (3.4-5.0); ANION GAP 9 (8-16); BLOOD UREA NITROGEN 16 MG/DL (7-18); BUN/CREATININE RATIO 14.5 (5.4-32.0); CALCIUM 8.7 MG/DL (8.5-10.1); CHLORIDE 107 MMOL/L (99-107); GLUCOSE 112 MG/DL (70-104); SODIUM 145 MMOL/L (135-145); TOTAL CARBON DIOXIDE 28.6 MMOL/L (24-32); eGFR 66 ML/MIN
[2019-03-07 06:09] LABS: BASOPHILS % (AUTO) 0.5 % (0-1); EOSINOPHILS # (AUTO) 0.1 X10'3 (0-0.9); EOSINOPHILS % (AUTO) 1.2 % (0-6); HEMATOCRIT 33.6 % (42.0-52.0); HEMOGLOBIN 11.5 g/dl (14.0-17.9); LYMPHOCYTES # (AUTO) 2.3 X10'3 (1.1-4.8); MEAN CORPUSCULAR HGB CONC 34.1 g/dL (33.0-36.5); MEAN CORPUSCULAR VOLUME 93.7 FL (78-98); MEAN PLATELET VOLUME 8.2 FL (7.4-10.4); MONOCYTES # (AUTO) 0.7 X10'3 (0-0.9); MONOCYTES % (AUTO) 7.4 % (2-12); NEUTROPHILS # (AUTO) 6.2 X10'3 (1.8-7.7); NEUTROPHILS % (AUTO) 65.9 % (42-75); PLATELET COUNT 199 X10'3 (140-440); RED BLOOD COUNT 3.59 X10'6 (4.70-6.10); RED CELL DISTRIBUTION WIDTH 13.6 % (11.5-14.5); WHITE BLOOD COUNT 9.4 X10'3 (4.5-11.0)
--- NOTE | 2019-03-07 06:18 | NUR ---
Problems reprioritized. Patient report given, questions answered & plan of care reviewed with Eloisa/SonamRN.
[2019-03-07 08:00] VITALS: BP_SYST 97
[2019-03-07] MEDS: metoprolol tartrate 25mg tablet PO SCH (08:00)
[2019-03-07] MEDS: K and/or MAG REPLACEMENT MC SCH (08:00)
--- NOTE | 2019-03-07 08:15 | NUR ---
Nehemiah JAIMES into see patient; plan is to discharge home today.
[2019-03-07] MEDS: levoTHYROXINE 75mcg tablet PO SCH (08:49)
[2019-03-07] MEDS: aspirin 325mg tablet, delayed-release (Ecotrin) PO SCH (08:49)
[2019-03-07] MEDS: potassium Cl 20 mEq SR tablet PO SCH (08:50)
[2019-03-07] MEDS: docusate sod 100mg capsule PO SCH (08:50)
[2019-03-07] MEDS: atorvastatin 10mg tablet PO SCH (08:50)
[2019-03-07] MEDS: magnesium Cl slow-release 64mg tablet PO SCH (08:50)
[2019-03-07] MEDS: pantoprazole 40mg Tablet.DR PO SCH (08:53)
[2019-03-07] MEDS ORDERED: HYDR-3972 PO (09:04)
[2019-03-07] MEDS ORDERED: METO25TA6 PO (09:04)
[2019-03-07] MEDS ORDERED: ATOR10TA PO (09:04)
[2019-03-07] MEDS ORDERED: ASPI-41 PO (09:04)
[2019-03-07] MEDS ORDERED: LISI2.5T2 PO (09:04)
--- NOTE | 2019-03-07 11:11 | NUR ---
Both verbal and written discharge instructions give; pt states", and signed understanding." Medications phoned to pharmacy. Addendum: 03/07/19 at 1113 by Miryam Valentine RN Amended: Links added.
== END 2019-03-07 12:50 | disposition home health service (06) | DRG 216 ==
LOC: ER 07:20 → PCU 3S 10:38 → OBSVTOIN 13:05 → CMPBEDREQ 19:45 → MED 3N 03-02 11:15 → CICU 2S 03-03 16:29 → MED 3N 03-05 15:40
PROVIDERS: ADMIT Family Medicine; ATTEND Internal Medicine Cardiovascular Disease
PROC: B2151ZZ Fluoroscopy of Left Heart using Low Osmolar Contrast (ICD-10-PCS; principal; 2019-03-01)
PROC: 4A023N7 Measurement of Cardiac Sampling and Pressure, Left Heart, Percutaneous Approach (ICD-10-PCS; 2019-03-01)
PROC: B2111ZZ Fluoroscopy of Multiple Coronary Arteries using Low Osmolar Contrast (ICD-10-PCS; 2019-03-01)
PROC: B41F1ZZ Fluoroscopy of Right Lower Extremity Arteries using Low Osmolar Contrast (ICD-10-PCS; 2019-03-01)
PROC: X2RF032 Replacement of Aortic Valve using Zooplastic Tissue, Rapid Deployment Technique, Open Approach, New Technology Group 2 (ICD-10-PCS; 2019-03-03)
PROC: B246ZZ4 Ultrasonography of Right and Left Heart, Transesophageal (ICD-10-PCS; 2019-03-03)
DX: I21.A1 Myocardial infarction type 2 (principal); I50.31 Acute diastolic (congestive) heart failure; I35.2 Nonrheumatic aortic (valve) stenosis with insufficiency; E03.9 Hypothyroidism, unspecified; H91.90 Unspecified hearing loss, unspecified ear; I35.1 Nonrheumatic aortic (valve) insufficiency; N28.9 Disorder of kidney and ureter, unspecified; Z95.3 Presence of xenogenic heart valve
CPT/HCPCS: 0232T; 93306; 93312; 93325; 93458; 93567; 99285; 36415; 36600; 71045; 71046; 80048; 80053; 82330; 82435; 82803; 82947; 82948; 83036; 83735; 84100; 84132; 84295; 84484; 85018; 85025; 85027; 85347; 85384; 85610; 85730; 86885; 86900; 86901; 86920; 87081; 88300; 93005; 93880; 93970; 94002; 94010; 94667; 94760; 97110; 97116; 97161; 97530; 99152; 99153; A4618; A4620; A6258; A6402; A6449; A7000; A7048; C1713; C1751; C1760; C1769; G0378; J0131; J0690; J1644; J1815; J2001; J2150; J2250; J2270; J2370; J2704; J2720; J2930; J3010; J3370; J3475; J3480; J3490; J7030; J7040; J7050; J7120; P9047; Q0163; Q9967

== ENCOUNTER 2019-03-24 12:27 | Emergency (ER) | payer MEDICARE ==
[~2019-03-24] VITALS: Ht 188 cm; Wt 97.2 kg
[~2019-03-24 12:27] MED LIST changes: +ASPI-41 PO; +ATOR10TA PO; +HYDR-3972 PO; +LISI2.5T2 PO; +METO25TA6 PO
[2019-03-24] MEDS ORDERED: diazepam 5mg tablet PO ONE (14:25)
[2019-03-24 14:44] LABS: BASOPHILS # (AUTO) 0.1 X10'3 (0-0.2); BASOPHILS % (AUTO) 0.9 % (0-1); EOSINOPHILS # (AUTO) 0.2 X10'3 (0-0.9); EOSINOPHILS % (AUTO) 2.6 % (0-6); HEMATOCRIT 33.9 % (42.0-52.0); HEMOGLOBIN 11.8 g/dl (14.0-17.9); LYMPHOCYTES # (AUTO) 2.5 X10'3 (1.1-4.8); LYMPHOCYTES % (AUTO) 33.6 % (21-51); MEAN CORPUSCULAR HEMOGLOBIN 31.4 PG (27.0-31.0); MEAN CORPUSCULAR HGB CONC 34.7 g/dL (33.0-36.5); MEAN CORPUSCULAR VOLUME 90.5 FL (78-98); MONOCYTES # (AUTO) 0.6 X10'3 (0-0.9); MONOCYTES % (AUTO) 8.5 % (2-12); NEUTROPHILS % (AUTO) 54.4 % (42-75); PLATELET COUNT 339 X10'3 (140-440); RED BLOOD COUNT 3.74 X10'6 (4.70-6.10); RED CELL DISTRIBUTION WIDTH 12.9 % (11.5-14.5); WHITE BLOOD COUNT 7.4 X10'3 (4.5-11.0)
[2019-03-24 15:01] LABS: ALANINE AMINOTRANSFERASE 29 U/L (12-78); ALBUMIN 3.4 G/DL (3.4-5.0); ALBUMIN/GLOBULIN RATIO 0.9 (1.1-1.5); ALKALINE PHOSPHATASE 136 IU/L (46-116); ANION GAP 8 (8-16); ASPARTATE AMINO TRANSFERASE 14 U/L (10-37); BILIRUBIN,TOTAL 0.2 MG/DL (0.1-1.0); BLOOD UREA NITROGEN 21 MG/DL (7-18); BUN/CREATININE RATIO 18.9 (5.4-32.0); CALCIUM 8.9 MG/DL (8.5-10.1); CHLORIDE 108 MMOL/L (99-107); CREATININE 1.11 MG/DL (0.60-1.10); GLUCOSE 109 MG/DL (70-104); POTASSIUM 4.2 MMOL/L (3.5-5.1); SODIUM 142 MMOL/L (135-145); TOTAL CARBON DIOXIDE 26.4 MMOL/L (24-32); TOTAL PROTEIN 7.2 G/DL (6.4-8.2); eGFR 65 ML/MIN
[2019-03-24] MEDS ORDERED: DIAZ5TAB PO (15:30)
[2019-03-24 15:46] VITALS: BP 122/67
== END 2019-03-24 15:47 | disposition home or self-care (01) ==
LOC: ER 12:28
DX: R25.9 Unspecified abnormal involuntary movements (principal); E78.00 Pure hypercholesterolemia, unspecified; I10 Essential (primary) hypertension; E07.9 Disorder of thyroid, unspecified; Z95.4 Presence of other heart-valve replacement; Z79.82 Long term (current) use of aspirin; Z79.899 Other long term (current) drug therapy
CPT/HCPCS: 36415; 80053; 85025; 99283

== ENCOUNTER 2020-06-15 15:15 | Emergency (ER) | payer MEDICARE ==
[~2020-06-15] VITALS: Ht 185.4 cm; Wt 104.5 kg
[~2020-06-15 15:15] MED LIST changes: +DIAZ5TAB PO; +LIDOcaine 1% W/epiNEPHrine 1:100,000 20ml vial ONE
[2020-06-15 15:47] VITALS: BP 120/82
[2020-06-15] MEDS ORDERED: BUPIVAcaine/PF 2.5 mg/ml (0.25%) 30ml vial IJ ONE (16:05)
[2020-06-15] MEDS ORDERED: BUPIVAcaine/PF 2.5mg/ml (0.25%) 10ml vial IJ ONE (16:30)
== END 2020-06-15 16:51 | disposition home or self-care (01) ==
LOC: ER 15:15
DX: S61.012A Laceration without foreign body of left thumb without damage to nail, initial encounter (principal); W26.0XXA Contact with knife, initial encounter; Y93.89 Activity, other specified; Y92.89 Other specified places as the place of occurrence of the external cause; Y99.8 Other external cause status
CPT/HCPCS: 12002; 99281; 99282

== ENCOUNTER 2022-01-17 10:01 | Outpatient (CLI) | payer MEDICARE ==
[~2022-01-17 10:01] MED LIST changes: -LIDOcaine 1% W/epiNEPHrine 1:100,000 20ml vial ONE; +LISI2.5T14 PO; -LISI2.5T2 PO; +LOP25T PO; -METO25TA6 PO
== END 2022-01-17 23:59 | disposition home or self-care (01) ==
LOC: RAD 10:01
PROVIDERS: ATTEND Nurse Practitioner Family
DX: G25.3 Myoclonus (principal)
CPT/HCPCS: 95819

== ENCOUNTER 2022-07-14 15:54 | Emergency (ER) | payer MEDICARE ==
[~2022-07-14] VITALS: Ht 188 cm; Wt 104.5 kg
[2022-07-14 16:34] VITALS: BP 112/80
== END 2022-07-14 20:30 | disposition left against medical advice (07) ==
LOC: ER 15:56
DX: T81.9XXA Unspecified complication of procedure, initial encounter (principal); Z53.21 Procedure and treatment not carried out due to patient leaving prior to being seen by health care provider

== ENCOUNTER 2022-07-26 09:20 | Inpatient (IN) | payer MEDICARE ==
[~2022-07-26] VITALS: Ht 185.4 cm; Wt 98.6 kg
[2022-07-26 10:01] LABS: BASOPHILS # (AUTO) 0.1 X10'3 (0-0.2); BASOPHILS % (AUTO) 0.7 % (0-1); EOSINOPHILS # (AUTO) 0.1 X10'3 (0-0.9); EOSINOPHILS % (AUTO) 0.6 % (0-6); HEMATOCRIT 38.6 % (42.0-52.0); HEMOGLOBIN 13.3 g/dl (14.0-17.9); LYMPHOCYTES # (AUTO) 3.3 X10'3 (1.1-4.8); LYMPHOCYTES % (AUTO) 34.3 % (21-51); MEAN CORPUSCULAR HEMOGLOBIN 31.8 PG (27.0-31.0); MEAN CORPUSCULAR HGB CONC 34.4 g/dL (33.0-36.5); MEAN CORPUSCULAR VOLUME 92.5 FL (78-98); MONOCYTES # (AUTO) 0.6 X10'3 (0-0.9); MONOCYTES % (AUTO) 6.5 % (2-12); NEUTROPHILS # (AUTO) 5.5 X10'3 (1.8-7.7); NEUTROPHILS % (AUTO) 57.9 % (42-75); PLATELET COUNT 329 X10'3 (140-440); RED BLOOD COUNT 4.17 X10'6 (4.70-6.10); RED CELL DISTRIBUTION WIDTH 15.2 % (11.5-14.5); WHITE BLOOD COUNT 9.6 X10'3 (4.5-11.0)
[2022-07-26 10:11] LABS: ALANINE AMINOTRANSFERASE 29 U/L (12-78); ALBUMIN 3.1 G/DL (3.4-5.0); ALBUMIN/GLOBULIN RATIO 0.8 (1.1-1.5); ALKALINE PHOSPHATASE 69 IU/L (46-116); ANION GAP 8 (8-16); ASPARTATE AMINO TRANSFERASE 18 U/L (10-37); BILIRUBIN,TOTAL 0.4 MG/DL (0.1-1.0); BLOOD UREA NITROGEN 18 MG/DL (7-18); BUN/CREATININE RATIO 14.5 (5.4-32.0); CALCIUM 9.2 MG/DL (8.5-10.1); CHLORIDE 103 MMOL/L (99-107); CREATININE 1.24 MG/DL (0.60-1.10); GLUCOSE 123 MG/DL (70-104); POTASSIUM 3.7 MMOL/L (3.5-5.1); SODIUM 138 MMOL/L (135-145); TOTAL CARBON DIOXIDE 26.7 MMOL/L (24-32); TOTAL PROTEIN 7.1 G/DL (6.4-8.2); eGFR 57 ML/MIN
[2022-07-26] MEDS ORDERED: magnesium 4gm in 100ml NS 100 ML IV PRN (12:25)
[2022-07-26] MEDS ORDERED: mag hydrox/Alum hydrox/simeth 30ml oral suspension PO PRN (12:25)
[2022-07-26] MEDS ORDERED: magnesium hydroxide 30ml (MOM) UD suspension PO PRN (12:25)
[2022-07-26] MEDS ORDERED: PERFLUTREN PROTEIN-A MICROSPHR (Optison) 0.22 MG/ML 3ML VIAL IV ONE (12:25)
[2022-07-26] MEDS ORDERED: potassium Cl 20 mEq SR tablet PO PRN ×2 (12:25)
[2022-07-26] MEDS ORDERED: heparin 25,000 UNIT/250ml bag 250 ML IV PRN (12:25)
[2022-07-26] MEDS ORDERED: heparin 10,000 units/1 ML INJ IV ONE (12:25)
[2022-07-26] MEDS ORDERED: acetaminophen 325mg tablet PO PRN (12:25)
[2022-07-26] MEDS ORDERED: ondansetron/PF 4mg/2ml inj IV PRN (12:25)
[2022-07-26] MEDS ORDERED: potassium Cl 40MEQ/1/2NS 520ml 520 ML IV PRN (12:25)
[2022-07-26] MEDS ORDERED: nitroGLYCERIN 0.4mg SUBLingual tab SL PRN ×2 (12:25→12:30)
[2022-07-26] MEDS ORDERED: metoprolol tartrate 1mg/ml inj IV PRN (12:30)
[2022-07-26] MEDS ORDERED: aminophylline 250mg/10ml inj. IV PRN (12:30)
[2022-07-26] MEDS ORDERED: regadenoson 0.4mg/5ml syringe IV PRN (12:30)
[2022-07-26 13:01] LABS: APTT 23 SECONDS (22-32)
--- NOTE | 2022-07-26 14:53 | NUR ---
ECHO AT BEDSIDE
[2022-07-26] MEDS ORDERED: DEXA1TAB PO (15:19)
[2022-07-26] MEDS ORDERED: LEVO137T19 PO (15:19)
--- NOTE | 2022-07-26 19:15 | NUR ---
OPTISON not administered by nursing staff in ED
[2022-07-26] MEDS: K and/or MAG REPLACEMENT MC SCH (20:00)
[2022-07-26] MEDS: docusate sod 100mg capsule PO SCH (20:00)
[2022-07-26 20:21] LABS: APTT 35 SECONDS (22-32)
--- NOTE | 2022-07-26 20:46 | NUR ---
DR CABAN AT THE BEDSIDE AND UPDATED ON ELEVATED TROP OF 1164
[2022-07-26] MEDS: heparin 10,000 units/1 ML INJ IV PRN (20:52)
[2022-07-26 21:00] VITALS: BP 129/84
[2022-07-26] MEDS: metoprolol tartrate 25mg tablet PO SCH (21:02)
[2022-07-26 23:00] VITALS: BP 100/58
[2022-07-27] VITALS (15 sets, daily range): BP systolic 93–129; BP diastolic 53–81
--- NOTE | 2022-07-27 05:28 | NUR ---
RUSSELL SCAN CANCELLED PER DR. CABAN. PATIENT PREVIOUS DIET. HEART HEALTHY RESUMED
[2022-07-27 06:02] LABS: BASOPHILS # (AUTO) 0.1 X10'3 (0-0.2); BASOPHILS % (AUTO) 0.8 % (0-1); EOSINOPHILS # (AUTO) 0.1 X10'3 (0-0.9); EOSINOPHILS % (AUTO) 0.8 % (0-6); HEMATOCRIT 37.1 % (42.0-52.0); HEMOGLOBIN 12.4 g/dl (14.0-17.9); LYMPHOCYTES # (AUTO) 3.6 X10'3 (1.1-4.8); LYMPHOCYTES % (AUTO) 36.6 % (21-51); MEAN CORPUSCULAR HEMOGLOBIN 30.9 PG (27.0-31.0); MEAN CORPUSCULAR HGB CONC 33.3 g/dL (33.0-36.5); MEAN CORPUSCULAR VOLUME 92.7 FL (78-98); MEAN PLATELET VOLUME 7.3 FL (7.4-10.4); MONOCYTES # (AUTO) 0.8 X10'3 (0-0.9); NEUTROPHILS # (AUTO) 5.3 X10'3 (1.8-7.7); NEUTROPHILS % (AUTO) 53.8 % (42-75); PLATELET COUNT 305 X10'3 (140-440); RED CELL DISTRIBUTION WIDTH 15.2 % (11.5-14.5); WHITE BLOOD COUNT 9.9 X10'3 (4.5-11.0)
[2022-07-27 06:36] LABS: ALANINE AMINOTRANSFERASE 25 U/L (12-78); ALBUMIN/GLOBULIN RATIO 0.8 (1.1-1.5); ALKALINE PHOSPHATASE 67 IU/L (46-116); ANION GAP 7 (8-16); ASPARTATE AMINO TRANSFERASE 27 U/L (10-37); BILIRUBIN,TOTAL 0.5 MG/DL (0.1-1.0); BLOOD UREA NITROGEN 21 MG/DL (7-18); BUN/CREATININE RATIO 16.4 (5.4-32.0); CALCIUM 8.8 MG/DL (8.5-10.1); CHLORIDE 105 MMOL/L (99-107); CHOL/HDL RATIO 4.2 (0.00-4.99); CHOLESTEROL 212 MG/DL (0-200); CREATININE 1.28 MG/DL (0.60-1.10); GLUCOSE 104 MG/DL (70-104); HDL CHOLESTEROL 50 MG/DL (35-60); LDL CHOLESTEROL 129 MG/DL (50-100); MAGNESIUM 1.9 MG/DL (1.5-2.4); POTASSIUM 3.9 MMOL/L (3.5-5.1); SODIUM 139 MMOL/L (135-145); TOTAL CARBON DIOXIDE 27.5 MMOL/L (24-32); TOTAL PROTEIN 6.6 G/DL (6.4-8.2); TRIGLYCERIDES 142 MG/DL (20-135); eGFR 55 ML/MIN
[2022-07-27 07:04] LABS: PLATELET ESTIMATE NORMAL; TOTAL CELLS COUNTED 100
[2022-07-27] MEDS: levoTHYROXINE 112mcg tablet PO SCH (07:55)
[2022-07-27] MEDS: levoTHYROXINE 25mcg tablet PO SCH (07:55)
[2022-07-27] MEDS: metoprolol tartrate 25mg tablet PO SCH ×2 (07:56→19:07)
[2022-07-27] MEDS: aspirin 81mg, enteric-coated 1 TAB TABLET.DR PO SCH (07:56)
[2022-07-27] MEDS: clopidogrel 75mg tablet PO SCH (07:56)
[2022-07-27] MEDS ORDERED: dexamethasone 1mg tablet PO SCH ×2 (08:00→14:40)
[2022-07-27] MEDS: K and/or MAG REPLACEMENT MC SCH ×2 (08:00→20:08)
[2022-07-27] MEDS: docusate sod 100mg capsule PO SCH ×2 (08:00→19:06)
[2022-07-27] MEDS: heparin 10,000 units/1 ML INJ IV PRN ×2 (09:56→11:33)
--- NOTE | 2022-07-27 13:10 | NUR ---
Dr. Rainey at bedside. 1315 Pt being prepped for angio at this time. Bilat groins shaved, chg bath done, ns with extension tubing on iv pole. Cath called and stated they would be here at 1400 to bean picker pt. pt's is at the bedside. Will continue to monitor.
[2022-07-27] MEDS ORDERED: LIDOcaine 1% 30ml preserv. free vial ONE (13:53)
[2022-07-27] MEDS ORDERED: iohexol 350MG/ML 100ml bottle IV ONE (13:53)
[2022-07-27] MEDS ORDERED: iohexol 350 MG/ML 50ML vial IV ONE (13:53)
[2022-07-27] MEDS ORDERED: FENTANYL CITRATE/PF 50 MCG/1 ML VIAL ONE (13:53)
[2022-07-27] MEDS ORDERED: tirofiban 12.5mg in NS 250mL 0 ML IV ONE (13:53)
[2022-07-27] MEDS ORDERED: midazolam 1 mg/ML 2ml injection ONE (13:53)
--- NOTE | 2022-07-27 15:10 | NUR ---
Received report from recyclable materials collector. angio completed through Rt groin. will lie flat from 1500 to 2100. Results show cardiomyopathy. no clogged vessels.
[2022-07-27] MEDS ORDERED: OXAZEpam 15mg capsule PO PRN (15:40)
[2022-07-27] MEDS ORDERED: HYDROcodone/acetaminophen 5mg/325mg tablet PO PRN (15:40)
[2022-07-27] MEDS ORDERED: HYDROcodone/acetaminophen 10/325mg tab PO PRN (15:40)
[2022-07-27] MEDS ORDERED: normal saline 1000ml 1,000 ML IV SCH (15:40)
[2022-07-27] MEDS ORDERED: proCHLORperazine 10 MG/2 ml inj IV PRN (15:40)
--- NOTE | 2022-07-27 16:20 | NUR ---
spoke to lab again regarding the stat labs that Dr. Rainey ordered. Per MD order, I put in a stat lab order for CRP and CPK at 1327. After waiting 30 minutes I called the lab to remind them of the stat lab. They stated someone would take care of it right away. At 1615 I noticed that my stat lab order was cancelled and that the lab added it on to this morning labs. So I asked them why they would do that? I explained to them again why I had put in the stat lab in the first place. She stated that it was a mistake and that someone would be up right away to draw the blood. I notified the business analytics intern.
[2022-07-27 17:06] LABS: CREATINE KINASE 103 U/L (39-308)
[2022-07-28 02:00] VITALS: BP 109/70
--- NOTE | 2022-07-28 06:37 | NUR ---
Patient in room PCU 3024. I have received report from Susan KING and had the opportunity to ask questions and assume patient care.
[2022-07-28 07:14] VITALS: BP 98/61
[2022-07-28 07:15] VITALS: BP 98/61
[2022-07-28] MEDS: metoprolol tartrate 25mg tablet PO SCH (08:00)
[2022-07-28] MEDS: K and/or MAG REPLACEMENT MC SCH (08:00)
[2022-07-28] MEDS: aspirin 81mg, enteric-coated 1 TAB TABLET.DR PO SCH (08:23)
[2022-07-28] MEDS: docusate sod 100mg capsule PO SCH (08:23)
[2022-07-28] MEDS: clopidogrel 75mg tablet PO SCH (08:23)
[2022-07-28] MEDS: levoTHYROXINE 112mcg tablet PO SCH (08:23)
[2022-07-28] MEDS: levoTHYROXINE 25mcg tablet PO SCH (08:23)
[2022-07-28 09:17] LABS: BASOPHILS # (AUTO) 0.1 X10'3 (0-0.2); BASOPHILS % (AUTO) 0.6 % (0-1); EOSINOPHILS # (AUTO) 0.1 X10'3 (0-0.9); LYMPHOCYTES # (AUTO) 3.3 X10'3 (1.1-4.8); LYMPHOCYTES % (AUTO) 36.8 % (21-51); MEAN CORPUSCULAR HEMOGLOBIN 31.8 PG (27.0-31.0); MEAN CORPUSCULAR HGB CONC 34.2 g/dL (33.0-36.5); MEAN PLATELET VOLUME 7.3 FL (7.4-10.4); MONOCYTES # (AUTO) 0.6 X10'3 (0-0.9); MONOCYTES % (AUTO) 6.4 % (2-12); NEUTROPHILS # (AUTO) 4.9 X10'3 (1.8-7.7); NEUTROPHILS % (AUTO) 55.2 % (42-75); PLATELET COUNT 309 X10'3 (140-440); RED BLOOD COUNT 4.09 X10'6 (4.70-6.10); RED CELL DISTRIBUTION WIDTH 15.4 % (11.5-14.5); WHITE BLOOD COUNT 8.9 X10'3 (4.5-11.0)
[2022-07-28 09:36] LABS: ALANINE AMINOTRANSFERASE 26 U/L (12-78); ALBUMIN/GLOBULIN RATIO 0.8 (1.1-1.5); ALKALINE PHOSPHATASE 67 IU/L (46-116); ANION GAP 10 (8-16); ASPARTATE AMINO TRANSFERASE 22 U/L (10-37); BILIRUBIN,TOTAL 0.5 MG/DL (0.1-1.0); BLOOD UREA NITROGEN 17 MG/DL (7-18); BUN/CREATININE RATIO 13.8 (5.4-32.0); CALCIUM 9.7 MG/DL (8.5-10.1); CHLORIDE 104 MMOL/L (99-107); CREATININE 1.23 MG/DL (0.60-1.10); GLUCOSE 98 MG/DL (70-104); MAGNESIUM 2.1 MG/DL (1.5-2.4); POTASSIUM 3.8 MMOL/L (3.5-5.1); SODIUM 140 MMOL/L (135-145); TOTAL CARBON DIOXIDE 25.7 MMOL/L (24-32); TOTAL PROTEIN 6.7 G/DL (6.4-8.2); eGFR 57 ML/MIN
[2022-07-28] MEDS ORDERED: CLOP75TA34 PO (09:59)
[2022-07-28] MEDS ORDERED: ASPI-1071 PO (09:59)
[2022-07-28 11:47] VITALS: BP 107/74
--- NOTE | 2022-07-28 14:10 | NUR ---
Patient discharged home with all belongings and discharge instructions. IV removed and tele box returned to telegraph service clerk. Patient is in stable condition. Escorted out by nurse via wheel chair and left via private vehicle.
== END 2022-07-28 14:24 | disposition home or self-care (01) | DRG 281 ==
LOC: ER 09:21 → ED HOLD 12:30 → EDBEDREQ 19:58 → PCU 3S 20:20
PROVIDERS: ADMIT Family Medicine; ATTEND Family Medicine
PROC: 4A023N7 Measurement of Cardiac Sampling and Pressure, Left Heart, Percutaneous Approach (ICD-10-PCS; principal; 2022-07-27)
PROC: B2111ZZ Fluoroscopy of Multiple Coronary Arteries using Low Osmolar Contrast (ICD-10-PCS; 2022-07-27)
PROC: B2151ZZ Fluoroscopy of Left Heart using Low Osmolar Contrast (ICD-10-PCS; 2022-07-27)
PROC: B41F1ZZ Fluoroscopy of Right Lower Extremity Arteries using Low Osmolar Contrast (ICD-10-PCS; 2022-07-27)
DX: I21.4 Non-ST elevation (NSTEMI) myocardial infarction (principal); I42.9 Cardiomyopathy, unspecified; Z20.822 Contact with and (suspected) exposure to COVID-19; E78.00 Pure hypercholesterolemia, unspecified; E89.0 Postprocedural hypothyroidism; I08.3 Combined rheumatic disorders of mitral, aortic and tricuspid valves; I10 Essential (primary) hypertension; R00.0 Tachycardia, unspecified; I25.10 Atherosclerotic heart disease of native coronary artery without angina pectoris; N28.9 Disorder of kidney and ureter, unspecified; Z79.02 Long term (current) use of antithrombotics/antiplatelets; Z79.82 Long term (current) use of aspirin; I25.2 Old myocardial infarction; Z83.3 Family history of diabetes mellitus; Z86.011 Personal history of benign neoplasm of the brain; Z92.3 Personal history of irradiation; Z95.3 Presence of xenogenic heart valve; Z79.899 Other long term (current) drug therapy
CPT/HCPCS: 36415; 71045; 80053; 80061; 82550; 83735; 83880; 84484; 85007; 85025; 85347; 85610; 85730; 86140; 87081; 87635; 93005; 93306; 93458; 99152; 99153; 99285; A6258; C1760; C1769; C9803; G0378; J1644; J2250; J3010; J3246; J3490; J7030; J8540; Q9967

== ENCOUNTER 2024-07-19 06:18 | Observation (INO) | payer MEDICARE ==
[~2024-07-19] VITALS: Ht 188 cm; Wt 98.6 kg
[~2024-07-19 06:18] MED LIST changes: -ASPI-41 PO; -ATOR10TA PO; +CELE-193 PO; +CLOP-32 PO; -DIAZ5TAB PO; -HYDR-3972 PO; +LEVO137T19 PO; -LEVO150T8 PO; -LISI2.5T14 PO; -LOP25T PO; +ONDA-243 PO
[2024-07-19 07:51] LABS: BASOPHILS # (AUTO) 0.1 X10'3 (0-0.2); BASOPHILS % (AUTO) 0.9 % (0-1); EOSINOPHILS # (AUTO) 0.2 X10'3 (0-0.9); EOSINOPHILS % (AUTO) 3.3 % (0-6); HEMATOCRIT 40.8 % (42.0-52.0); HEMOGLOBIN 13.7 g/dl (14.0-17.9); LYMPHOCYTES # (AUTO) 2.3 X10'3 (1.1-4.8); LYMPHOCYTES % (AUTO) 39.2 % (21-51); MEAN CORPUSCULAR HEMOGLOBIN 31.3 PG (27.0-31.0); MEAN CORPUSCULAR HGB CONC 33.7 g/dL (33.0-36.5); MEAN CORPUSCULAR VOLUME 92.9 FL (78-98); MEAN PLATELET VOLUME 7.7 FL (7.4-10.4); MONOCYTES # (AUTO) 0.4 X10'3 (0-0.9); MONOCYTES % (AUTO) 7.3 % (2-12); NEUTROPHILS # (AUTO) 2.9 X10'3 (1.8-7.7); NEUTROPHILS % (AUTO) 49.3 % (42-75); PLATELET COUNT 256 X10'3 (140-440); RED BLOOD COUNT 4.39 X10'6 (4.70-6.10); RED CELL DISTRIBUTION WIDTH 13.4 % (11.5-14.5); WHITE BLOOD COUNT 5.8 X10'3 (4.5-11.0)
[2024-07-19 08:08] LABS: ALANINE AMINOTRANSFERASE 25 U/L (12-78); ALBUMIN 3.6 G/DL (3.4-5.0); ALKALINE PHOSPHATASE 81 IU/L (46-116); ANION GAP 5 (8-16); ASPARTATE AMINO TRANSFERASE 23 U/L (10-37); BILIRUBIN,TOTAL 0.5 MG/DL (0.1-1.0); BLOOD UREA NITROGEN 20 MG/DL (7-18); BUN/CREATININE RATIO 15.6 (10.0-20.0); CALCIUM 9.1 MG/DL (8.5-10.1); CHLORIDE 108 MMOL/L (99-107); CREATININE 1.28 MG/DL (0.60-1.10); GLUCOSE 112 MG/DL (70-104); SODIUM 139 MMOL/L (135-145); TOTAL CARBON DIOXIDE 26.4 MMOL/L (24-32); TOTAL PROTEIN 7.1 G/DL (6.4-8.2); eCRCL 55 ML/MIN; eGFR 54 ML/MIN
[2024-07-19] MEDS: aspirin 81mg tab.chew PO ONE (09:16)
[2024-07-19] MEDS ORDERED: magnesium hydroxide 30ml (MOM) UD suspension PO PRN (10:25)
[2024-07-19] MEDS ORDERED: potassium Cl 20 mEq SR tablet PO PRN ×2 (10:25)
[2024-07-19] MEDS ORDERED: magnesium sulf-water 4G/100mL 100 ML IV PRN (10:25)
[2024-07-19] MEDS ORDERED: magnesium sulf-water 2g/50mL 50 ML IV PRN (10:25)
[2024-07-19] MEDS ORDERED: mag hydrox/Alum hydrox/simeth 30ml oral suspension PO PRN (10:25)
[2024-07-19] MEDS ORDERED: ondansetron/PF 4mg/2ml inj IV PRN (10:25)
[2024-07-19] MEDS ORDERED: acetaminophen 325mg tablet PO PRN (10:25)
[2024-07-19] MEDS ORDERED: potassium Cl 40MEQ/1/2NS 520ml 520 ML IV PRN (10:25)
[2024-07-19 12:21] LABS: BILIRUBIN,URINE NEGATIVE (Neg); CLARITY,URINE CLEAR (Clear); COLOR,URINE STRAW (Yellow); GLUCOSE, URINE NEGATIVE (Neg); KETONES,URINE NEGATIVE (Neg); LEUKOCYTE ESTERASE ,URINE NEGATIVE (Neg); NITRITES, URINE NEGATIVE (Neg); OCCULT BLOOD,URINE NEGATIVE (Neg); PROTEIN,URINE NEGATIVE (Neg); UROBILINOGEN,URINE 0.2 E.U/dL (0.2-1.0)
[2024-07-19 12:23] LABS: UA COLLECTION TYPE CLN CATCH MIDSTREAM
[2024-07-19] MEDS: normal saline 1000ml 1,000 ML IV SCH (15:46)
[2024-07-19] MEDS: pantoprazole 40mg Tablet.DR PO ONE (19:16)
[2024-07-19] MEDS: docusate sod 100mg capsule PO SCH (19:16)
[2024-07-19] MEDS: K and/or MAG REPLACEMENT MC SCH (20:00)
[2024-07-19] MEDS: heparin, porcine 5000 units/ml vial SQ SCH (21:19)
[2024-07-20 03:36] LABS: BASOPHILS # (AUTO) 0.1 X10'3 (0-0.2); EOSINOPHILS # (AUTO) 0.2 X10'3 (0-0.9); HEMATOCRIT 37.5 % (42.0-52.0); HEMOGLOBIN 12.7 g/dl (14.0-17.9); LYMPHOCYTES # (AUTO) 2.7 X10'3 (1.1-4.8); LYMPHOCYTES % (AUTO) 42.1 % (21-51); MEAN CORPUSCULAR HEMOGLOBIN 31.5 PG (27.0-31.0); MEAN CORPUSCULAR HGB CONC 33.8 g/dL (33.0-36.5); MEAN CORPUSCULAR VOLUME 93.1 FL (78-98); MEAN PLATELET VOLUME 7.6 FL (7.4-10.4); MONOCYTES # (AUTO) 0.4 X10'3 (0-0.9); MONOCYTES % (AUTO) 6.6 % (2-12); NEUTROPHILS % (AUTO) 47.3 % (42-75); PLATELET COUNT 243 X10'3 (140-440); RED BLOOD COUNT 4.03 X10'6 (4.70-6.10); RED CELL DISTRIBUTION WIDTH 13.7 % (11.5-14.5); WHITE BLOOD COUNT 6.4 X10'3 (4.5-11.0)
[2024-07-20 03:58] LABS: ALANINE AMINOTRANSFERASE 28 U/L (12-78); ALBUMIN 3.3 G/DL (3.4-5.0); ALKALINE PHOSPHATASE 79 IU/L (46-116); ANION GAP 9 (8-16); ASPARTATE AMINO TRANSFERASE 19 U/L (10-37); BILIRUBIN,TOTAL 0.4 MG/DL (0.1-1.0); BLOOD UREA NITROGEN 23 MG/DL (7-18); BUN/CREATININE RATIO 17.7 (10.0-20.0); CALCIUM 8.9 MG/DL (8.5-10.1); CHLORIDE 108 MMOL/L (99-107); CHOL/HDL RATIO 4.7 (0.00-4.99); CHOLESTEROL 197 MG/DL (0-200); GLUCOSE 101 MG/DL (70-104); HDL CHOLESTEROL 42 MG/DL (35-60); LDL CHOLESTEROL 115 MG/DL (50-100); MAGNESIUM 2.1 MG/DL (1.5-2.4); SODIUM 142 MMOL/L (135-145); TOTAL CARBON DIOXIDE 24.8 MMOL/L (24-32); TOTAL PROTEIN 6.6 G/DL (6.4-8.2); TRIGLYCERIDES 145 MG/DL (20-135); eCRCL 54 ML/MIN; eGFR 53 ML/MIN
[2024-07-20 04:00] LABS: POTASSIUM 4.3 MMOL/L (3.5-5.1)
[2024-07-20 07:15] VITALS: BP 125/75; PULSE 74; RESP 16; TEMP 97.5; O2SAT 98
[2024-07-20] MEDS: pantoprazole 40mg Tablet.DR PO SCH (07:30)
[2024-07-20 08:00] VITALS: RESP 16; O2SAT 96
[2024-07-20 10:30] VITALS: BP 136/83; PULSE 97; RESP 14; TEMP 97.6; O2SAT 98
[2024-07-20 18:00] VITALS: BP 125/80; PULSE 74; RESP 14; TEMP 97.7; O2SAT 97
== END 2024-07-20 20:50 | disposition home or self-care (01) ==
LOC: ER 06:20 → ED HOLD 16:09 → INTOOBSV 16:09 → ORTHO 4S 07-20 07:10
PROVIDERS: ADMIT Nurse Practitioner Family; ATTEND Nurse Practitioner Family
DX: G93.89 Other specified disorders of brain (principal); Z20.822 Contact with and (suspected) exposure to COVID-19; I35.0 Nonrheumatic aortic (valve) stenosis; R41.0 Disorientation, unspecified; I10 Essential (primary) hypertension; E78.00 Pure hypercholesterolemia, unspecified; I25.2 Old myocardial infarction; Z85.841 Personal history of malignant neoplasm of brain; Z79.02 Long term (current) use of antithrombotics/antiplatelets; Z86.73 Personal history of transient ischemic attack (TIA), and cerebral infarction without residual deficits; Z95.2 Presence of prosthetic heart valve; Z79.899 Other long term (current) drug therapy
CPT/HCPCS: 36415; 70450; 70551; 71045; 80053; 80061; 81003; 83735; 84145; 84484; 85025; 87811; 93005; 93306; 93880; 96360; 96361; 99285; G0378; J7030